=== PATIENT | female | born 1945 | race Caucasian/White ===

== ENCOUNTER → 2018-10-21 | Outpatient (CLI) | payer MEDICARE ==
--- NOTE | 2018-10-21 13:04 | RAD ---
CT of the chest without contrast, 10/21/2018: HISTORY: Sarcoidosis Noncontrast scans were obtained as requested. No previous CT imaging is available for comparison purposes. There is mild calcific plaquing of the thoracic aorta without evidence of aneurysm. Several scattered coronary calcifications are present, most prominent in the LAD. A trace amount of pericardial fluid is present. Several small mediastinal lymph nodes are evident without pathologic enlargement. No hilar adenopathy is seen, although the luis are not optimally evaluated on these noncontrast scans. There are several scattered mild linear opacities in both lungs suggesting scarring and/or atelectasis. The most prominent of these lies medially in the left lower lobe. There are several very tiny nodular opacities such as a 2 mm nodule evident laterally in the right upper lobe on image 25 of series #2, and a similar nodule in the posterolateral aspect of the left lower lobe as seen on image 55 series #2. There is mild plaque-like calcification related to the superior aspect of the oblique fissure on the left. There is no evidence of pleural fluid. Mild bilateral renal cortical scarring is noted. Mild scattered degenerative changes are present in the spine. Nonspecific sclerosis is evident within the inferior aspect of the L2 vertebral body, incompletely delineated on these chest scans. IMPRESSION: 1. Mild scattered parenchymal scars in both lungs as well as a few very tiny nodular pulmonary opacities. The findings are compatible with the given history of sarcoidosis. 2. No mediastinal adenopathy is evident. 3. Calcific plaquing of the aorta and coronary arteries PQRS Compliance Statement: One or more of the following individualized dose reduction techniques were utilized for this examination: 1. Automated exposure control 2. Adjustment of the mA and/or kV according to patient size 3. Use of iterative reconstruction technique Electronically signed by: Marek Paulino MD (10/21/2018 1:01 PM) [facility]
== END ==
LOC: CT 10:57
PROVIDERS: ATTEND Internal Medicine Critical Care Medicine
DX: I70.0 Atherosclerosis of aorta (principal); I25.10 Atherosclerotic heart disease of native coronary artery without angina pectoris; N28.89 Other specified disorders of kidney and ureter; R91.8 Other nonspecific abnormal finding of lung field
CPT/HCPCS: 71250

== ENCOUNTER → 2019-04-21 | Outpatient (CLI) | payer OTHER ==
[2019-04-21 12:48] VITALS: BP 156/73
== END | disposition home or self-care (01) ==
LOC: SURG 12:29
PROVIDERS: ATTEND Anesthesiology Pain Medicine
DX: Z02.9 Encounter for administrative examinations, unspecified (principal); M47.26 Other spondylosis with radiculopathy, lumbar region; Z79.899 Other long term (current) drug therapy; M48.061 Spinal stenosis, lumbar region without neurogenic claudication; M51.36 Other intervertebral disc degeneration, lumbar region; M96.1 Postlaminectomy syndrome, not elsewhere classified
CPT/HCPCS: 99214